=== PATIENT | female | born 1985 | race Two or more races ===

== ENCOUNTER 2016-10-11 13:56 | Emergency (ER) | payer SELFPAY ==
[~2016-10-11] VITALS: Ht 149.9 cm; Wt 58.5 kg
[2016-10-11 14:52] LABS: Basophils # (auto) 0 uL; Basophils % (auto) 0.4 % (0.0-2.0); Eosinophils # (auto) 0 uL; Eosinophils % (auto) 0.3 % (0.0-7.0); Hematocrit 38.3 % (36.0-46.0); Hemoglobin 12.7 g/dL (12.2-16.2); Lymphocytes # (auto) 1.5 uL; Lymphocytes % (auto) 18.2 % (10.0-50.0); Mean Corpuscular Hemoglobin 29.6 pg (28.0-32.0); Mean Corpuscular Hgb Conc. 33.2 g/dL (32.0-36.0); Mean Corpuscular Volume 89.3 fL (80.0-100.0); Mean Platelet Volume 9.5 fL (7.4-10.4); Monocytes # (auto) 0.5 uL; Neutrophils # (auto) 6.3 uL; Neutrophils % (auto) 75.1 % (37.0-80.0); Platelet Count (auto) 282 10^3/uL (140-450); Red Cell Distribution Width 13.4 % (11.6-16.0); White Blood Cell 8.4 10^3/uL (4.4-10.8)
[2016-10-11 15:17] LABS: Albumin 4.1 g/dL (3.4-5.0); Alkaline Phosphatase 74 U/L (45-117); Anion Gap 13 (5-15); Aspartate Aminotransferase 12 U/L (15-37); BUN/Creatinine Ratio 14.3; Bilirubin, Total 0.5 mg/dL (0.2-1.0); Blood Urea Nitrogen 8 mg/dL (7-18); Calcium 8.7 mg/dL (8.5-10.1); Carbon Dioxide 24 mmol/L (21-32); Chloride 106 mmol/L (98-107); GFR African American 165 mL/min; GFR Non-African American 136 mL/min; Glucose 91 mg/dL (74-106); Magnesium 2.1 mg/dL (1.6-2.6); Potassium 3.4 mmol/L (3.5-5.1); Sodium 143 mmol/L (136-145); Total Protein 8.5 g/dL (6.4-8.2)
[2016-10-11 15:36] LABS: Urine Bilirubin Negative (Negative); Urine Color Yellow (Yellow); Urine Glucose Normal (Normal); Urine Mucus FEW (None Seen); Urine Nitrite Negative (Negative); Urine RBC 169 /hpf (0 - 4); Urine Squamous Epithelial Cell FEW /hpf (<5); Urine Urobilinogen Normal (Negative); Urine pH 5.5 (5.0-8.0)
[2016-10-11 15:38] LABS: Urine Blood 3+ /uL (Negative); Urine Ketone 1+ (Negative)
[2016-10-11 17:15] VITALS: BP 140/96
== END 2016-10-11 17:54 | disposition home or self-care (01) ==
LOC: ER 13:56
DX: N39.0 Urinary tract infection, site not specified (principal); R53.1 Weakness; R42 Dizziness and giddiness; R51 Headache
CPT/HCPCS: 36415; 71020; 80053; 81001; 81025; 83735; 84484; 85025; 93005; 94761

== ENCOUNTER 2024-12-05 11:15 | Emergency (ER) | payer SELFPAY ==
[~2024-12-05] VITALS: Ht 149.9 cm; Wt 61.2 kg
[2024-12-05 11:30] VITALS: TEMP 98.7
[2024-12-05] MEDS: ACETAMINOPHEN 500 MG TAB or CAP PO ONE (12:07)
[2024-12-05 12:08] VITALS: PULSE 102; RESP 16; O2SAT 100
[2024-12-05 12:14] LABS: Basophils # (auto) 0 10 ^3/uL (0-0.2); Basophils % (auto) 0.5 % (0.0-2.0); Eosinophils # (auto) 0 10 ^3/uL (0-0.8); Eosinophils % (auto) 0.3 % (0.0-7.0); Hematocrit 37.2 % (36.0-46.0); Hemoglobin 12.7 g/dL (12.2-16.2); Lymphocytes # (auto) 3.3 10 ^3/uL (0.4-5.4); Mean Corpuscular Hemoglobin 30.2 pg (28.0-32.0); Mean Corpuscular Hgb Conc. 34.1 g/dL (32.0-36.0); Mean Corpuscular Volume 88.5 fL (80.0-100.0); Monocytes # (auto) 0.8 10 ^3/uL (0-1.3); Monocytes % (auto) 8.1 % (0.0-12.0); Neutrophils # (auto) 5.1 10 ^3/uL (1.6-8.6); Neutrophils % (auto) 55.1 % (37.0-80.0); Nucleated Red Blood Cells % 0.2 %; Platelet Count (auto) 272 10^3/uL (140-450); Red Cell Distribution Width 13.4 % (11.8-14.3); White Blood Cell 9.3 10^3/uL (4.4-10.8)
[2024-12-05 12:19] LABS: Chloride 106 mmol/L (98-107); Potassium 3.8 mmol/L (3.5-5.1); Sodium 138 mmol/L (136-145)
[2024-12-05 12:20] LABS: Anion Gap 10 (5-15); Calcium 10.3 mg/dL (8.7-10.4); Carbon Dioxide 22 mmol/L (20-31)
[2024-12-05 12:25] LABS: BUN/Creatinine Ratio 21.9 (10.0-20.0); Blood Urea Nitrogen 14 mg/dL (9-23); Glucose 91 mg/dL (74-106)
--- NOTE | 2024-12-05 12:30 | ED.PDOC ---
GI ASSESSMENT HPI Comments 39 y.o female presents to the ED for a chief complaint of lower abdominal and pelvic cramping that started one week ago. Patient does reports positive test 3 days ago with a [employer]CH[employer]ICIAN history of and one miscarriage. Patient's [facility] was on 10/14/24. Patient denies any vaginal bleeding, fever, chills, back pain, nausea, vomiting, diarrhea, constipation or dysuria. No other medical history or allergies reported. Chief Complaint: Pelvic Pain Time Seen by MD: 11:58 Primary Care Provider: ? Reviewed Notes: Nurses Notes, Medications, Allergies Allergies: Coded Allergies: NO KNOWN ALLERGIES (Unverified , 10/11/16) Information Source: Patient Mode of Arrival: Ambulatory Timing: Weeks (1) Duration: Since onset Quality: Cramping Vomitus: None Stool: Normal Severity: Moderate Recent: None Recent Hx of: Current Pain Location: Suprapubic Modifying Factors: Nothing Associated sign and symptoms: Abdominal Pain Past Medical History PAST MEDICAL HISTORY: Denies Surgical History: Denies all surgeries 3 Para 1 AB 1 LMP 10/14/24 Family History Family History: Reviewed,noncontributory to illness Social History Smoker: Non-Smoker Alcohol: Denies ETOH Use Drugs: Denies Drug Use Lives In: Home Constitutional: denies: chills, diaphoresis, fatigue, fever, malaise, sweats, weakness, others EENTM: denies: blurred vision, double vision, ear bleeding, ear discharge, ear drainage, ear pain, ear ringing, eye pain, eye redness, hearing loss, mouth pain, mouth swelling, nasal discharge, nose bleeding, nose congestion, nose pain, photophobia, tearing, throat pain, throat swelling, voice changes, others Respiratory: denies: cough, hemoptysis, orthopnea, SOB at rest, shortness of breath, SOB with excertion, stridor, wheezing, others Cardiovascular: denies: chest pain, dizzy spells, diaphoresis, Dyspnea on exertion, edema, irregular heart beat, left arm pain, lightheadedness, palpitations, PND, syncope, others Gastrointestinal: denies: abdomen distended, abdominal pain, blood streaked bowels, constipated, diarrhea, dysphagia, difficulty swallowing, hematemesis, melena, nausea, poor appetite, poor fluid intake, rectal bleeding, rectal pain, vomiting, others Genitourinary: reports: pain, ; denies: abnormal vagina bleeding, burning, dyspareunia, dysuria, flank pain, frequency, hematuria, incontinence, vagina discharge, urgency, others Neurological: denies: dizziness, fainting, headache, left sided numbness, left sided weakness, numbness, paresthesia, pre-existing deficit, right sided numbness, right sided weakness, seizure, speech problems, tingling, tremors, weakness, others Musculoskeletal: denies: back pain, gout, joint pain, joint swelling, muscle pain, muscle stiffness, neck pain, others Integumetry: denies: bruises, change in color, change in hair/nails, dryness, laceration, lesions, lumps, rash, wounds, others Allergic/Immunocompromised: denies: Difficulty Healing, Frequent Infections, Hives, Itching, others Hematologic/Lymphatic: denies: anemia, blood clots, easy bleeding, easy bruising, swollen glands, others Endocrine: denies: excessive hunger, excessive sweating, excessive thirst, excessive urination, flushing, intolerance to cold, intolerance to heat, unexplained weight gain, unexplained weight loss, others Psychiatric: denies: anxiety, bipolar disorder, depression, hopeless, panic disorder, schizophrenia, sleepless, suicidal, others All Other Systems: Reviewed and Negative Physical Exam General Appearance: No Apparent Distress, Obese HEENT: Other (Pupils and face symmetric. Moist mucous membranes.) Neck: Full Range of Motion, Normal Inspection Respiratory: Lungs Clear, No Accessory Muscle Use, No Respiratory Distress, Normal Breath Sounds Cardiovascular: No Edema, No JVD, Regular Rate/Rhythm Breast Exam: Deferred Gastrointestinal: Non Tender, Soft Genitalia: Deferred Pelvic: Deferred Rectal: Deferred Extremities: Normal inspection, Normal range of motion, Non-tender, No pedal edema Neurologic: Alert (Oriented x4), Normal Affect, Normal Mood, Other (Ambulatory) Cerebellar Function: NOT DONE Reflexes: NOT DONE Skin: Dry, Normal Color, Warm Lymphatic: NOT DONE Was a procedure done? Was a procedure done?: No GI differential Dx Differential Diagnosis: Complete , Incomplete , Inevitable , Missed , Threatened , Abruptio placentae, UTI, Dehydration, Electrolyte Imbalance, , Viral X-Ray, Labs, Meds, VS Vital Signs Date Time Temp Pulse Resp B/P (MAP) Pulse Ox O2 Delivery O2 Flow Rate FiO2 12/05/24 14:02 84 18 99 Room Air 12/05/24 14:02 74 18 155/103 (120) 98 12/05/24 12:08 102 16 100 Room Air* 0 21 12/05/24 11:30 98.7 102 16 156/92 (113) 100 98.7 12/05/24 11:29 98.7 102 16 156/92 (113) 100 98.7 Lab Test 12/05/24 13:50 12/05/24 11:54 Range/Units Urine Color Colorless Yellow Urine Clarity Clear Clear Urine pH 6.0 5.0-9.0 Urine Specific [place] 1.005 1.001-1.035 Urine Protein Negative Negative Urine Ketones Negative Negative Urine Blood 1+ H Negative /uL Urine Nitrite Negative Negative Urine Bilirubin Negative Negative Urine Urobilinogen Normal Negative mg/dL Urine Leukocyte Esterase Negative Negative /uL Urine RBC 1 0 - 4 /hpf Urine Microscopic WBC < 1 0-5 /HPF Urine Squamous Epithelial Cells Few <5 /hpf Urine Bacteria None seen None Seen /hpf Urine Glucose Normal Normal mg/dL White Blood Count 9.3 4.4-10.8 10^3/uL Red Blood Count 4.20 4.0-5.20 10^6/uL Hemoglobin 12.7 12.2-16.2 g/dL Hematocrit 37.2 36.0-46.0 % Mean Corpuscular Volume 88.5 80.0-100.0 fL Mean Corpuscular Hemoglobin 30.2 28.0-32.0 pg Mean Corpuscular Hemoglobin Concent 34.1 32.0-36.0 g/dL Red Cell Distribution Width 13.4 11.8-14.3 % Platelet Count 272 140-450 10^3/uL Mean Platelet Volume 8.8 6.9-10.8 fL Neutrophils (%) (Auto) 55.1 37.0-80.0 % Lymphocytes (%) (Auto) 36.0 10.0-50.0 % Monocytes (%) (Auto) 8.1 0.0-12.0 % Eosinophils (%) (Auto) 0.3 0.0-7.0 % Basophils (%) (Auto) 0.5 0.0-2.0 % Neutrophils # (Auto) 5.1 1.6-8.6 10 ^3/uL Lymphocytes # (Auto) 3.3 0.4-5.4 10 ^3/uL Monocytes # (Auto) 0.8 0-1.3 10 ^3/uL Eosinophils # (Auto) 0 0-0.8 10 ^3/uL Basophils # (Auto) 0 0-0.2 10 ^3/uL Nucleated Red Blood Cells 0.2 % Sodium Level 138 136-145 mmol/L Potassium Level 3.8 3.5-5.1 mmol/L Chloride Level 106 98-107 mmol/L Carbon Dioxide Level 22 20-31 mmol/L Anion Gap 10 5-15 Blood Urea Nitrogen 14 9-23 mg/dL Creatinine 0.64 0.550-1.02 mg/dL Glomerular Filtration Rate Calc 117 >90 mL/min BUN/Creatinine Ratio 21.9 H 10.0-20.0 Serum Glucose 91 74-106 mg/dL Calcium Level 10.3 8.7-10.4 mg/dL Beta HCG, Quantitative 85829.6 H 1.5-4.2 mIU/mL Current Medications Medications (Trade) Dose Ordered Sig/Terri Route Start Time Stop Time Status Last Admin Acetaminophen (Tylenol Tablet Or Capsule) 1,000 mg ONCE ONCE PO 12/05/24 12:00 12/05/24 12:01 DC 12/05/24 12:07 PROCEDURE(s): OB4US - OB ULTRASOUND COMP LESS 14WKS REASON: pelvic pain/cramping ORDER NUMBER(s): [id number], ACCESSION NUMBER(s): [id number] Technique: Real-time ultrasound images through the pelvis using a transabdominal transducer. For better evaluation of the ovaries and endometrial stripe, an endovaginal transducer was used. Indication: pelvic pain/cramping Comparison: None Findings: The uterus measures 10.8 cm. Intrauterine gestational sac measuring 2 cm. crown-rump length 6 mm. heart rate of 126 beats per minute. Cervical nabothian cysts. Right ovary measures 1.9 x 1.1 x 2 cm. Normal flow on color doppler images. No focal masses are identified. Left ovary measures 3.2 x 2.3 x 2.4 cm. Normal flow on color doppler images. Left ovarian cyst with peripheral hypervascularitym measuring 1.9 cm.. There is small amount of free fluid in the pelvis. Impression: 1. Single live intrauterine dating to 6 weeks, 3 days. heart rate of 126 beats per minute. 2. Left ovarian involuting corpus luteal / hemorrhagic cyst measuring 1.9 cm. 3. Small amount of free pelvic fluid. X-Ray, Labs, Meds, VS Comment 49-year-old female with current recent positive test, G3, P1, AB1 and history of hypertension presenting for evaluation of abdominal cramping. Vitals remarkable for heart rate 102, BP 156/92 Exam unremarkable Rhythm strip independently interpreted by me: Sinus rhythm, rate 74, no ectopy. Ob ultrasound: Impression: 1. Single live intrauterine dating to 6 weeks, 3 days. heart rate of 126 beats per minute. 2. Left ovarian involuting corpus luteal / hemorrhagic cyst measuring 1.9 cm. 3. Small amount of free pelvic fluid. CBC and basic metabolic panel unremarkable, serum quantitative hCG 25662.6, UA positive for blood, otherwise unremarkable No acute treatment indicated in ED: On re-evaluation, patient was not in pain. Vitals were stable including heart rate which was in the 70s. Patient appears stable for discharge with close outpatient follow-up with her primary physician. Time of 1ST Reevaluation: 12:29 Reevaluation 1ST: Unchanged Patient Education/Counseling: Diagnosis, Treatment, Prognosis Family Education/Counseling: No Family Present Departure 1 Departure Time of Disposition: 17:00 Impression: Primary Impression: Abdominal pain during in first trimester Disposition: 01 HOME / SELF CARE / HOMELESS Condition: Stable Additional Instructions: Blood tests and urine test were unremarkable. Your ultrasound showed a current 6 week, 3 day . Please see the report below. I have prescribed medication for cramping to take as needed. Follow-up with your OBGYN in 1-2 days for ongoing care. If you do not have an OBGYN, you may follow-up with Dr. Johnson. [address] [address] Ph: [phone] DIAGNOSTIC IMAGING Diagnostic Imaging Report : [id number] Signed PATIENT: ELLIOT VUONG ACCT: [id number] UNIT: [id number] : 1985 LOC: ER ROOM / BED: / AGE / SEX: 39 / F ADM STATUS: REG ER SERVICE 1147 ORDERING PHYSICIAN: TERESA BRITTON MD PROCEDURE(s): OB4US - OB ULTRASOUND COMP LESS 14WKS REASON: pelvic pain/cramping ORDER NUMBER(s): [id number], ACCESSION NUMBER(s): [id number] Technique: Real-time ultrasound images through the pelvis using a transabdominal transducer. For better evaluation of the ovaries and endometrial stripe, an endovaginal transducer was used. Indication: pelvic pain/cramping Comparison: None Findings: The uterus measures 10.8 cm. Intrauterine gestational sac measuring 2 cm. crown-rump length 6 mm. heart rate of 126 beats per minute. Cervical nabothian cysts. Right ovary measures 1.9 x 1.1 x 2 cm. Normal flow on color doppler images. No focal masses are identified. Left ovary measures 3.2 x 2.3 x 2.4 cm. Normal flow on color doppler images. Left ovarian cyst with peripheral hypervascularitym measuring 1.9 cm.. There is small amount of free fluid in the pelvis. Impression: 1. Single live intrauterine dating to 6 weeks, 3 days. heart rate of 126 beats per minute. 2. Left ovarian involuting corpus luteal / hemorrhagic cyst measuring 1.9 cm. 3. Small amount of free pelvic fluid. ATED BY: PRASAD PHILLIPS MD DICTATED DATE/TIME: 12/05/24 1417 e-Prescriptions Acetaminophen (Tylenol Extra Strength) 500 Mg Tab 1000 MG PO Q6HP PRN, #30 TAB Prov: TERESA BRITTON MD 12/05/24 Discharged With: Self Critical Care Note Critical Care Time?: No Stability Stability form required: No I personally scribed for TERESA BRITTON MD ([email or web address]) on 12/05/24 at 12:30. Electronically submitted by Ruth Baca ([facility]). TERESA BRITTON MD Dec 05, 2024 12:30
[2024-12-05 13:53] LABS: Urine Bacteria None Seen /hpf (None Seen)
[2024-12-05 14:06] LABS: Urine Blood 1+ /uL (Negative); Urine Clarity Clear (Clear); Urine Color Colorless (Yellow); Urine Protein, UAD Negative (Negative); Urine Specific Gravity 1.005 (1.001-1.035); Urine Squamous Epithelial Cell FEW /hpf (<5); Urine Urobilinogen Normal (Negative); Urine WBC < 1 /HPF (0-5)
--- NOTE | 2024-12-05 14:19 | DVH ---
Technique: Real-time ultrasound images through the pelvis using a transabdominal transducer. For bett er evaluation of the ovaries and endometrial stripe, an endovaginal transducer was used. Indication: pelvic pain/cramping Comparison: None Findings: The uterus measures 10.8 cm. Intrauterine gestational sac measuring 2 cm. crown-rump length 6 mm. heart rate of 126 beats per minute. Cervical nabothian cysts. Right ovary measures 1.9 x 1.1 x 2 cm. Normal flow on color doppler images. No focal masses are ident ified. Left ovary measures 3.2 x 2.3 x 2.4 cm. Normal flow on color doppler images. Left ovarian cyst with peripheral hypervascularitym measuring 1.9 cm.. There is small amount of free fluid in the pelvis. Impression: 1. Single live intrauterine dating to 6 weeks, 3 days. heart rate of 126 beats per m inute. 2. Left ovarian involuting corpus luteal / hemorrhagic cyst measuring 1.9 cm. 3. Small amount of free pelvic fluid.
[2024-12-05] MEDS ORDERED: ACET-1304 PO (17:03)
[2024-12-05 17:12] VITALS: BP 125/70; PULSE 88; RESP 18; O2SAT 97
== END 2024-12-05 17:12 | disposition home or self-care (01) ==
LOC: ER 11:15
DX: O26.891 Other specified pregnancy related conditions, first trimester (principal); R10.2 Pelvic and perineal pain; Z3A.01 Less than 8 weeks gestation of pregnancy
CPT/HCPCS: 36415; 76801; 76817; 80048; 81001; 84702; 85025